=== PATIENT | male | born 1995 | race Caucasian/White ===

== ENCOUNTER 2017-09-20 22:25 | Emergency (ER) | payer OTHER ==
[~2017-09-20] VITALS: Ht 177.8 cm; Wt 95.0 kg
[2017-09-20 22:51] VITALS: BP 162/98; PULSE 75; RESP 16; TEMP 98.7; O2SAT 100
--- NOTE | 2017-09-20 23:26 | PD ---
HPI Chief Complaint: Psychiatric Symptoms Time Seen by Provider: 22:48 Travel History International Travel<30 days: No Contact w/Intl Traveler<30days: No Traveled to known affect area: No History of Present Illness HPI Patient is a 21-year-old male presenting to emergency department under Lopez act for psychiatric evaluation. Patient states that he got into an argument with his father over money. He states that his father told him he would pay for his medication after he had his tooth pulled today. When he asked his father for the money would not give it to him. They then argued and patient states he told his father he was leaving and was staying with a friend. Patient states that he owns several knives and made a statement to his father that he wanted to kill himself. Patient reports that he has wanted to seek psychiatric help in the past, he reports previous suicidal ideations but no previous attempt. He reports that life is a series of letdown and struggles and sometimes he is tired of living it. He denies any previous diagnosis of depression or psychiatric illness. He denies any medical history. He has no complaints at this time. [facility] Past Medical History Medical History: Denies Significant Hx Autoimmune Disease: No Cardiovascular Problems: No Genitourinary: No Musculoskeletal: No Neurologic: No Psychiatric: No Respiratory: No Social History Alcohol Use: No Tobacco Use: No Substance Use: No Allergies-Medications (Allergen,Severity, Reaction): Coded Allergies: *MDRO Multi-Drug Resistant Organism (Verified Allergy, Unknown, 10/04/16) MRSA Reported Meds & Prescriptions Reported Meds & Active Scripts Active Review of Systems Except as stated in HPI: all other systems reviewed are Neg Psychiatric: Positive: Depression, Suicidal Ideations Physical Exam Narrative GENERAL: Well-developed, well-nourished, alert male. Resting comfortably in no acute distress SKIN: Warm and dry. HEAD: Atraumatic. Normocephalic. EYES: Pupils equal and round. No scleral icterus. No injection or drainage. ENT: No nasal bleeding or discharge. Mucous membranes pink and moist. NECK: Trachea midline. No JVD. CARDIOVASCULAR: Regular rate and rhythm. RESPIRATORY: No accessory muscle use. Clear to auscultation. Breath sounds equal bilaterally. GASTROINTESTINAL: Abdomen soft, non-tender, nondistended. Hepatic and splenic margins not palpable. MUSCULOSKELETAL: Extremities without clubbing, cyanosis, or edema. No obvious deformities. NEUROLOGICAL: Awake and alert. No obvious cranial nerve deficits. Motor grossly within normal limits. Five out of 5 muscle strength in the arms and legs. Normal speech. PSYCHIATRIC: Depressed mood and affect; insight and judgment normal. Data Data Last Documented VS Vital Signs Date Time Temp Pulse Resp B/P (MAP) Pulse Ox O2 Delivery O2 Flow Rate FiO2 09/21/17 02:21 69 18 133/77 (95) 09/20/17 22:51 98.7 100 Room Air Orders Orders Complete Blood Count With Diff (09/20/17 22:47) Comprehensive Metabolic Panel (09/20/17 22:47) Psych Screen (09/20/17 22:47) Drug Screen, Random Urine (09/20/17 22:47) Alcohol (Ethanol) (09/20/17 22:47) Salicylates (Aspirin) (09/20/17 22:47) Tylenol (Acetaminophen) (09/20/17 22:47) Diet Regular Basic (09/21/17 Breakfast) Potassium Chloride (Kcl) (09/21/17 02:00) Labs Laboratory Tests Test 09/20/17 23:32 09/21/17 01:20 White Blood Count 13.9 TH/MM3 Red Blood Count 5.28 MIL/MM3 Hemoglobin 15.2 GM/DL Hematocrit 45.2 % Mean Corpuscular Volume 85.6 FL Mean Corpuscular Hemoglobin 28.9 PG Mean Corpuscular Hemoglobin Concent 33.7 % Red Cell Distribution Width 12.8 % Platelet Count 388 TH/MM3 Mean Platelet Volume 7.7 FL Neutrophils (%) (Auto) 74.8 % Lymphocytes (%) (Auto) 17.6 % Monocytes (%) (Auto) 6.5 % Eosinophils (%) (Auto) 0.6 % Basophils (%) (Auto) 0.5 % Neutrophils # (Auto) 10.4 TH/MM3 Lymphocytes # (Auto) 2.4 TH/MM3 Monocytes # (Auto) 0.9 TH/MM3 Eosinophils # (Auto) 0.1 TH/MM3 Basophils # (Auto) 0.1 TH/MM3 CBC Comment DIFF FINAL Differential Comment Blood Urea Nitrogen 12 MG/DL Creatinine 0.90 MG/DL Random Glucose 81 MG/DL Total Protein 8.0 GM/DL Albumin 4.2 GM/DL Calcium Level 8.8 MG/DL Alkaline Phosphatase 57 U/L Aspartate Amino Transf (AST/SGOT) 16 U/L Alanine Aminotransferase (ALT/SGPT) 40 U/L Total Bilirubin 0.5 MG/DL Sodium Level 141 MEQ/L Potassium Level 3.4 MEQ/L Chloride Level 106 MEQ/L Carbon Dioxide Level 27.4 MEQ/L Anion Gap 8 MEQ/L Estimat Glomerular Filtration Rate 107 ML/MIN Salicylates Level LESS THAN 1.7 MG/DL Acetaminophen Level LESS THAN 2.0 MCG/ML Ethyl Alcohol Level LESS THAN 3 MG/DL Urine Opiates Screen POS Urine Barbiturates Screen NEG Urine Amphetamines Screen NEG Urine Benzodiazepines Screen NEG Urine Cocaine Screen NEG Urine Cannabinoids Screen POS MDM Medical Decision Making Medical Screen Exam Complete: Yes Emergency Medical Condition: Yes Interpretation(s) Vital Signs Date Time Temp Pulse Resp B/P (MAP) Pulse Ox O2 Delivery O2 Flow Rate FiO2 09/20/17 22:51 98.7 75 16 162/98 (119) 100 Room Air Differential Diagnosis Mood disorder versus substance abuse versus suicidal ideations versus depression versus other Narrative Course Patient presented under Lopez act for psychiatric evaluation secondary to making suicidal statements to his father. She admits to making the statements, he reported that his life is hard and he is tired of living this way. Patient denies any previous suicide attempt or plan currently. Mental health screening discussed with the patient. Psychiatric screen ordered. Labs reviewed, CBC with a slightly elevated white count, patient did have a tooth extraction today. Chemistry with potassium at 3.4, oral replacement ordered. Urine drug screen is positive for opiates and marijuana. Patient has a prescription for narcotic pain medication after the tooth extraction. Salicylate and acetaminophen are normal. Alcohol level is unremarkable. Patient is medically cleared for psychiatric evaluation at this time. Patient was seen and evaluated by psychiatric screener, he will be transferred to [facility] this morning. Diagnosis Primary Impression: Medical clearance for psychiatric admission Disposition: 65 DISC TO [facility] Condition: Stable Sid,Juliannaelsy OLIVER Sep 20, 2017 23:26
[2017-09-20 23:46] LABS: AUTOMATED NEUTROPHIL # 10.4 TH/MM3 (1.8-7.7); BASOPHIL # 0.1 TH/MM3 (0-0.2); BASOPHIL % 0.5 % (0.0-2.0); EOSINOPHIL # 0.1 TH/MM3 (0-0.4); EOSINOPHIL % 0.6 % (0.0-4.0); HEMATOCRIT 45.2 % (39.0-51.0); HEMO FLAGS DIFF FINAL; LYMPH % 17.6 % (9.0-44.0); LYMPHOCYTE # 2.4 TH/MM3 (1.0-4.8); MEAN CELL VOLUME 85.6 FL (80.0-100.0); MEAN CORPUSCULAR HEMOGLOBIN 28.9 PG (27.0-34.0); MEAN CORPUSCULAR HGB CONC 33.7 % (32.0-36.0); MONO % 6.5 % (0.0-8.0); NEUT % 74.8 % (16.0-70.0); PLATELET COUNT 388 TH/MM3 (150-450); RED BLOOD COUNT 5.28 MIL/MM3 (4.50-5.90); RED CELL DISTRIBUTION WIDTH 12.8 % (11.6-17.2); WHITE BLOOD COUNT 13.9 TH/MM3 (4.0-11.0)
[2017-09-21 00:01] LABS: ANION GAP 8 MEQ/L (5-15); AST (GOT) 16 U/L (15-37); BICARBONATE 27.4 MEQ/L (21.0-32.0); BLOOD UREA NITROGEN 12 MG/DL (7-18); CHLORIDE 106 MEQ/L (98-107); GLOMERULAR FILTRATION RATE 107 ML/MIN (>89); POTASSIUM 3.4 MEQ/L (3.5-5.1); SODIUM (NA) 141 MEQ/L (136-145)
[2017-09-21 00:05] LABS: ALKALINE PHOSPHATASE 57 U/L (45-117); ALT (GPT) 40 U/L (12-78); TOTAL BILIRUBIN ADULT 0.5 MG/DL (0.2-1.0)
[2017-09-21 00:07] LABS: ACETAMINOPHEN LESS THAN 2.0 MCG/ML (10.0-30.0); ALCOHOL LESS THAN 3 MG/DL (0-5)
[2017-09-21] MEDS ORDERED: POTASSIUM CHLORIDE 20 MEQ CONTROLLED RELEASE TAB PO ONE (02:00)
[2017-09-21 02:21] VITALS: BP 133/77; PULSE 69; RESP 18
== END 2017-09-21 03:25 ==
LOC: NEPD 22:25 → NEPJ 09-21 03:25
DX: R45.851 Suicidal ideations (principal); D72.829 Elevated white blood cell count, unspecified
CPT/HCPCS: 80053; 80307; 85025; 99285